=== PATIENT | female | born 1960 | race Caucasian/White ===

== ENCOUNTER 2021-03-01 02:38 | Inpatient (IN) ==
[2021-03-01] MEDS ORDERED: Morphine 4 MG/ML VIAL (1 ml) IV ONE (04:54)
[2021-03-01] MEDS ORDERED: Droperidol 5 MG/2 ML 2 ML VIAL IV ONE (04:54)
[2021-03-01] MEDS ORDERED: Lactated Ringers 1000 ml BAG 1,000 ML IV ONE (04:54)
[2021-03-01] MEDS ORDERED: Morphine 4 MG/ML VIAL (1 ml) IV PRN (04:54)
[2021-03-01 05:00] LABS: ABS Lymphocytes 0.6 10^3/ul (1.0-4.8); ABS Monocytes 0.5 10^3/ul (0-0.8); Eosinophil % 0.1 %; Hematocrit 41 % (35-47); Hemoglobin 14.4 g/dL (12.0-16.0); Lymphocyte % 5.9 %; Mean Corpuscular HGB Conc 35 g/dL (31-36); Mean Corpuscular Hemoglobin 30 pg (27-31); Mean Corpuscular Volume 86 fL (80-97); Platelet Count 194 10^3/uL (150-450); Red Cell Distribution Width 13 % (10-15)
[2021-03-01 05:04] LABS: Urine Appearance Cloudy; Urine Bilirubin Negative (Negative); Urine Blood Negative (Negative); Urine Color Amber; Urine Glucose 2+(150 mg/dL) (Negative); Urine Ketones 1+ (Negative); Urine Nitrite Negative (Negative); Urine Protein 2+(100 mg/dL) (Negative); Urine Specific Gravity 1.024 (1.002-1.030); Urine Urobilinogen Negative (Negative)
[2021-03-01 05:16] LABS: Albumin 4.8 g/dL (3.2-5.2); Albumin/Globulin Ratio 1.7 (1-3); C Reactive Protein 3.6 mg/L (<8.01); Calcium 9.5 mg/dL (8.6-10.3); EGFR African American 91.9 (>60); Globulin 2.9 g/dL (2-4); Potassium 3.5 mmol/L (3.5-5.0); Total Bilirubin 1.4 mg/dL (0.2-1.0); Total Protein 7.7 g/dL (6.4-8.9)
[2021-03-01 05:37] LABS: Urine Bacteria Absent (Absent); Urine Red Blood Cell 3+(>10/hpf) (Absent); Urine Squamous Epithelial Cell Present (Absent); Urine White Blood Cell Trace(0-5/hpf) (Absent)
[2021-03-01] MEDS ORDERED: Iohexol 300 (CONTRAST) 10 ML SDV IV ONE (06:45)
[2021-03-01] MEDS ORDERED: Al Hydrox/Mg Hydrox/Simet LIQ 30 ML UDC PO PRN (10:02)
[2021-03-01] MEDS ORDERED: NS 0.9% 1000 ml BAG 1,000 ML IV SCH (10:15)
[2021-03-01] MEDS ORDERED: Enoxaparin 40 MG/0.4 ML SYR SUBCUT SCH (11:00)
[2021-03-01 11:43] LABS: HDL Cholesterol 80.6 mg/dL
[2021-03-01] MEDS ORDERED: Morphine 10 MG/ML VIAL (1 ml) IV PRN (12:22)
[2021-03-01 12:37] LABS: Hepatitis C Antibody Negative (Negative)
[2021-03-01] MEDS ORDERED: Piperacillin/Tazobac ADVAN 3.375 GM in NS 0.9% 100 ml BAG 100 ML IV ONE (14:42)
[2021-03-01 15:00] LABS: Hepatitis B Surface Antigen Nonreactive (Nonreactive)
[2021-03-01] MEDS ORDERED: Zosyn per Pharmacy NOTE FOLLOW UP SCH (15:00)
[2021-03-01 15:06] LABS: Hepatitis B Core IgM Nonreactive (Nonreactive)
[2021-03-01] MEDS: Pantoprazole VIAL 40 MG VIAL IV SCH (16:45)
[2021-03-01] MEDS: Morphine 2 MG/ML SYRINGE IV PRN ×2 (17:09→23:19)
[2021-03-01] MEDS: Ondansetron 4 mg VIAL 2 MG/ML 2 ml VIAL IV PRN ×2 (17:16→23:19)
[2021-03-01] MEDS: ZOSYN 3.375 GM Q8H per EXTENDED INFUSION IV SCH (19:50)
[2021-03-01 20:38] LABS: Hepatitis A Ab IgM Negative (Negative)
[2021-03-02] MEDS: Morphine 2 MG/ML SYRINGE IV PRN ×2 (01:41→04:01)
[2021-03-02] MEDS: Ondansetron 4 mg VIAL 2 MG/ML 2 ml VIAL IV PRN ×2 (04:00→08:09)
[2021-03-02] MEDS: ZOSYN 3.375 GM Q8H per EXTENDED INFUSION IV SCH ×3 (04:01→22:06)
[2021-03-02 06:41] LABS: ABS Lymphocytes 1.1 10^3/ul (1.0-4.8); ABS Monocytes 0.9 10^3/ul (0-0.8); ABS Neutrophils 6.8 10^3/ul (1.5-7.7); Eosinophil % 0.2 %; Hematocrit 42 % (35-47); Hemoglobin 14.3 g/dL (12.0-16.0); Lymphocyte % 12.6 %; Mean Corpuscular HGB Conc 34 g/dL (31-36); Mean Corpuscular Hemoglobin 30 pg (27-31); Mean Corpuscular Volume 87 fL (80-97); Mean Platelet Volume 7.1 fL (7.4-10.4); Platelet Count 186 10^3/uL (150-450); Red Blood Count 4.78 10^6 /uL (3.70-4.87); Red Cell Distribution Width 13 % (10-15); White Blood Count 8.8 10^3/uL (3.5-10.8)
[2021-03-02 07:14] LABS: Albumin 4.2 g/dL (3.2-5.2); Albumin/Globulin Ratio 1.4 (1-3); C Reactive Protein 16.56 mg/L (<8.01); Calcium 8.7 mg/dL (8.6-10.3); EGFR African American 102.6 (>60); EGFR Non-African American 84.8 (>60); Globulin 2.9 g/dL (2-4); Potassium 3.3 mmol/L (3.5-5.0); Total Bilirubin 3.1 mg/dL (0.2-1.0); Total Protein 7.1 g/dL (6.4-8.9)
[2021-03-02] MEDS ORDERED: HYDROmorphone 1 MG/1 ML SYRINGE IV SLOW PU PRN (07:40)
[2021-03-02] MEDS ORDERED: D5LR 20 MEQ KCL 1000 ml BAG 1,000 ML IV SCH (08:00)
[2021-03-02] MEDS: Pantoprazole VIAL 40 MG VIAL IV SCH (08:15)
[2021-03-02] MEDS: buPROPion SR 100 mg TAB.SR PO SCH (08:16)
[2021-03-02] MEDS ORDERED: HYDROmorphone 0.5 MG/0.5 ML SYRINGE IV SLOW PU PRN (12:21)
[2021-03-02] MEDS ORDERED: Bupivacaine 0.25% EPI 200,000 30 ML SDV ONE (15:03)
[2021-03-02] MEDS ORDERED: fentaNYL 250 mcg/5 ml 50 MCG/ML 5 ml VIAL (250 MCG) ONE (15:14)
[2021-03-02] MEDS ORDERED: Rocuronium 50 mg VIAL 10 mg/ml 5 ml VIAL (50 mg) ONE ×2 (15:14→16:36)
[2021-03-02] MEDS ORDERED: Midazolam 2 mg/2 ml VIAL 1 mg/ml 2 ml VIAL (2 mg) ONE (15:14)
[2021-03-02] MEDS ORDERED: Lidocaine 2% PF 5 ML VIAL ONE (15:16)
[2021-03-02] MEDS ORDERED: Propofol 10 MG/ML 20 ML BTL ONE (15:16)
[2021-03-02] MEDS ORDERED: Dexamethasone IV 4 MG/ML VIAL 1 ml VIAL ONE (16:44)
[2021-03-02] MEDS ORDERED: Ondansetron 4 mg VIAL 2 MG/ML 2 ml VIAL ONE (16:44)
[2021-03-02] MEDS ORDERED: HYDROmorphone 1 MG/1 ML SYRINGE ONE (16:45)
[2021-03-03] MEDS: ZOSYN 3.375 GM Q8H per EXTENDED INFUSION IV SCH ×3 (04:49→20:39)
[2021-03-03 06:12] LABS: ABS Lymphocytes 1.4 10^3/ul (1.0-4.8); ABS Monocytes 0.9 10^3/ul (0-0.8); ABS Neutrophils 6.7 10^3/ul (1.5-7.7); Eosinophil % 0.2 %; Hematocrit 38 % (35-47); Hemoglobin 13.1 g/dL (12.0-16.0); Mean Corpuscular HGB Conc 35 g/dL (31-36); Mean Corpuscular Hemoglobin 30 pg (27-31); Mean Corpuscular Volume 88 fL (80-97); Mean Platelet Volume 6.9 fL (7.4-10.4); Platelet Count 169 10^3/uL (150-450); Red Cell Distribution Width 13 % (10-15)
[2021-03-03 06:31] LABS: Albumin 3.9 g/dL (3.2-5.2); Albumin/Globulin Ratio 1.4 (1-3); Alkaline Phosphatase 252 U/L (35-149); Blood Urea Nitrogen 8 mg/dL (6-24); CO2 Carbon Dioxide 27 mmol/L (22-32); Calcium 8.6 mg/dL (8.6-10.3); Chloride 104 mmol/L (101-111); EGFR African American 90.6 (>60); EGFR Non-African American 74.8 (>60); Globulin 2.8 g/dL (2-4); Glucose 115 mg/dL (70-100); Sodium 138 mmol/L (135-145); Total Protein 6.7 g/dL (6.4-8.9)
[2021-03-03 06:54] LABS: ALT 546 U/L (7-52)
[2021-03-03] MEDS: Pantoprazole VIAL 40 MG VIAL IV SCH (08:33)
[2021-03-03] MEDS: buPROPion SR 100 mg TAB.SR PO SCH (08:33)
[2021-03-03 10:22] LABS: Anion Gap 7 mmol/L (2-11)
[2021-03-03 14:47] LABS: Potassium Redraw 3.1 mmol/L (3.5-5.0)
[2021-03-03 17:48] LABS: Albumin/Globulin Ratio 1.7 (1-3); Globulin 2.4 g/dL (2-4); Total Protein 6.4 g/dL (6.4-8.9)
[2021-03-03] MEDS ORDERED: Potassium Chlor 20 meq TAB.ER PO ONE (18:12)
[2021-03-03] MEDS ORDERED: Senna TAB 8.6 mg TAB PO PRN (20:08)
[2021-03-03] MEDS ORDERED: Magnesium Hydroxide LIQ 30 ML UDC PO PRN (20:08)
[2021-03-03] MEDS ORDERED: Polyethylene Glycol 3350 17 GM PACKET PO PRN (20:08)
[2021-03-04] MEDS: ZOSYN 3.375 GM Q8H per EXTENDED INFUSION IV SCH ×3 (05:09→20:50)
[2021-03-04 06:51] LABS: Albumin 3.8 g/dL (3.2-5.2); Albumin/Globulin Ratio 1.4 (1-3); Calcium 8.4 mg/dL (8.6-10.3); Direct Bilirubin 3.4 mg/dL (0.03-0.18); EGFR African American 97.7 (>60); EGFR Non-African American 80.8 (>60); Globulin 2.8 g/dL (2-4); Indirect Bilirubin 1.2 mg/dL (0.3-1.0); Potassium 3.3 mmol/L (3.5-5.0); Total Bilirubin 4.6 mg/dL (0.2-1.0); Total Protein 6.6 g/dL (6.4-8.9)
[2021-03-04] MEDS: Pantoprazole VIAL 40 MG VIAL IV SCH (08:34)
[2021-03-04] MEDS: buPROPion SR 100 mg TAB.SR PO SCH (08:34)
[2021-03-04] MEDS ORDERED: Potassium Chlor 20 meq TAB.ER PO ONE (11:00)
[2021-03-05] MEDS: ZOSYN 3.375 GM Q8H per EXTENDED INFUSION IV SCH (04:25)
[2021-03-05 05:19] LABS: Calcium 8.4 mg/dL (8.6-10.3); EGFR African American 113.8 (>60); Potassium 3.6 mmol/L (3.5-5.0)
[2021-03-05 07:47] VITALS: BP 123/79
[2021-03-05] MEDS: buPROPion SR 100 mg TAB.SR PO SCH (08:51)
[2021-03-05] MEDS: Pantoprazole VIAL 40 MG VIAL IV SCH (08:52)
== END 2021-03-05 10:45 | disposition home or self-care (01) | DRG 419 ==
LOC: ED 02:38 → MED 02:38 → SSU 03-02 18:55
PROVIDERS: ADMIT Internal Medicine; ATTEND Surgery